=== PATIENT | female | born 1965 | race Caucasian/White ===

== ENCOUNTER 2022-04-15 23:50 | Emergency (ER) | payer OTHER ==
[2022-04-15] MEDS ORDERED: SODIUM CHLORIDE 0.9% 1,000 ML IV ONE (23:59)
[2022-04-16 00:04] VITALS: RESP 15; TEMP 98.1
--- NOTE | 2022-04-16 00:04 | ED ---
General Adult HPI - General Chief complaint: Fall Stated complaint: Fall Time Seen by Provider: 04/15/22 23:55 Source: patient, EMS, RN notes reviewed - History of Present Illness Initial comments: Patient is a 56-year-old female presents to the emergency room via EMS after falling off a barstool at a local bar and consequently hitting her head. She is unsure if she passed out/blacked out 3 or post event. Clean to EMS GCS initially was 13 and now is 15. She reports having a "couple" of drinks. She complains of pain to the posterior occipital region of her head where she has a laceration but denies any other joint pain. She denies any dizziness or nausea at this time. Tetanus is up-to-date. He denies any significant past medical or surgical history and does not take any medications on a regular basis. - Related Data Allergies Allergy/AdvReac Type Severity Reaction Status Date / Time Penicillins Allergy Rash/Hives Verified 04/16/22 00:00 Review of Systems ROS Statement: Those systems with pertinent positive or pertinent negative responses have been documented in the HPI. ROS Other: All systems not noted in ROS Statement are negative. Past Medical History Past Medical History: No Reported History History of Any Multi-Drug Resistant Organisms: None Reported Past Surgical History: No Surgical Hx Reported Past Anesthesia/Blood Transfusion Reactions: No Reported Reaction Past Psychological History: No Psychological Hx Reported Smoking Status: Never smoker Past Alcohol Use History: Occasional Past Drug Use History: None Reported General Exam General appearance: alert, in no apparent distress, appears intoxicated Head exam: Present: normocephalic, other Expanded Head exam: Present: laceration (occiptial ), hematoma Eye exam: Present: normal appearance, PERRL. Absent: scleral icterus, conjunctival injection ENT exam: Present: normal exam, mucous membranes moist Neck exam: Present: other (c-collar) Respiratory exam: Present: normal lung sounds bilaterally. Absent: respiratory distress, wheezes, rales, rhonchi, stridor Cardiovascular Exam: Present: regular rate, normal rhythm, normal heart sounds. Absent: systolic murmur, diastolic murmur, rubs, gallop, clicks Extremities exam: Present: normal inspection. Absent: pedal edema, joint swelling Back exam: Present: normal inspection Neurological exam: Present: alert, oriented X3, CN II-XII intact Psychiatric exam: Present: flat affect, other (Intoxicated) Skin exam: Present: other (Laceration occipital lobe) Course Vital Signs 04/16/22 00:01 Temperature 98.1 F Pulse Rate 81 Respiratory 15 Rate Blood Pressure 140/66 O2 Sat by Pulse 95 Oximetry Procedures - Laceration Laceration #1 Consent Obtained: verbal consent Indication: laceration Site: scalp (Occipital right side) Size (cm): 4 Description: linear Depth: simple, single layer Anesthesia Technique: local infiltration Pre-repair: wound explored, irrigated extensively Type of Sutures: other (matthew) Number of Sutures: 10 Patient Tolerated Procedure: well, no complications Medical Decision Making - Medical Decision Making 56-year-old female with alcohol intoxication and fall with head trauma. Will check CT of brain and cervical spine. Will keep on c-collar until C-spine is cleared. Will check CBC, CMP along with serum alcohol level. We'll give an additional 1 L IV fluid to help with acute intoxication. No other indication for other diagnostic imaging. CT of brain and cervical spine negative for acute intracranial process or cervical fracture. CBC stable. CMP shows mildly elevated liver enzymes and serum alcohol level elevated at 322. We'll close laceration to occipital scalp region with matthew. Wound care discussed with patient and boyfriend at bedside. No indication for antibiotic therapy. Tetanus up-to-date. Will discharge home with follow-up with her primary care provider. Both patient and boyfriend in acutely intoxicated and have a ride to take him home. Case discussed with Dr. Alcala - Lab Data Result diagrams: 04/16/22 00:15 04/16/22 00:15 Lab Results 04/16/22 04/16/22 04/16/22 Range/Units 00:15 00:15 00:15 WBC 7.6 (3.8-10.6) k/uL RBC 4.70 (3.80-5.40) m/uL Hgb 14.2 (11.4-16.0) gm/dL Hct 44.2 (34.0-46.0) % MCV 94.1 (80.0-100.0) fL MCH 30.1 (25.0-35.0) pg MCHC 32.0 (31.0-37.0) g/dL RDW 12.9 (11.5-15.5) % Plt Count 229 (150-450) k/uL MPV 8.1 Neutrophils % 48 % Lymphocytes % 41 % Monocytes % 4 % Eosinophils % 4 % Basophils % 1 % Neutrophils # 3.6 (1.3-7.7) k/uL Lymphocytes # 3.1 (1.0-4.8) k/uL Monocytes # 0.3 (0-1.0) k/uL Eosinophils # 0.3 (0-0.7) k/uL Basophils # 0.1 (0-0.2) k/uL PT 10.5 (9.0-12.0) sec INR 1.0 (<1.2) APTT 23.6 (22.0-30.0) sec Sodium 143 (137-145) mmol/L Potassium 3.5 (3.5-5.1) mmol/L Chloride 106 (98-107) mmol/L Carbon Dioxide 21 L (22-30) mmol/L Anion Gap 16 mmol/L BUN 16 (7-17) mg/dL Creatinine 0.68 (0.52-1.04) mg/dL Est GFR (CKD-EPI)AfAm >90 (>60 ml/min/1.73 sqM) Est GFR (CKD-EPI)NonAf >90 (>60 ml/min/1.73 sqM) Glucose 98 (74-99) mg/dL Calcium 8.6 (8.4-10.2) mg/dL Total Bilirubin 0.2 (0.2-1.3) mg/dL AST 51 H (14-36) U/L ALT 61 H (4-34) U/L Alkaline Phosphatase 117 (38-126) U/L Total Protein 6.9 (6.3-8.2) g/dL Albumin 4.2 (3.5-5.0) g/dL Serum Alcohol 322 H* mg/dL - Radiology Data Radiology results: report reviewed, image reviewed CT brain and cervical spine without contrast impression negative computed tomography scan of the brain. Spondylitic changes in the lower cervical spine. No fracture seen. Disposition Clinical Impression: Fall, Laceration of skin of scalp Disposition: HOME SELF-CARE Instructions (If sedation given, give patient instructions): Care For Your Stitches (ED), Laceration (ED), Concussion (ED) Additional Instructions: Please keep wound and dry. Monitor for signs and symptoms of infection and seek medical attention as appropriate if symptoms occur. Please follow-up with your primary care provider for staple removal in 7-10 days. Please return to the Emergency Department if symptoms worsen or any other concerns. Is patient prescribed a controlled substance at d/c from ED?: No Referrals: None,Stated [REFERRING] - 1-2 days Time of Disposition: 01:26
[2022-04-16 00:20] LABS: Basophils # (A) 0.1 k/uL (0-0.2); Basophils % (A) 1 %; Eosinophils # (A) 0.3 k/uL (0-0.7); Eosinophils % (A) 4 %; HCT 44.2 % (34.0-46.0); HGB 14.2 gm/dL (11.4-16.0); Lymphocytes # (A) 3.1 k/uL (1.0-4.8); Lymphocytes % (A) 41 %; MCH 30.1 pg (25.0-35.0); MCV 94.1 fL (80.0-100.0); Mean Platelet Volume 8.1; Monocytes # (A) 0.3 k/uL (0-1.0); Monocytes % (A) 4 %; Neutrophils # (A) 3.6 k/uL (1.3-7.7); Neutrophils % (A) 48 %; Platelet Count 229 k/uL (150-450); RDW 12.9 % (11.5-15.5); WBC 7.6 k/uL (3.8-10.6)
[2022-04-16 00:31] LABS: ALT 61 U/L (4-34); AST 51 U/L (14-36); African American GFR (CKD) >90 (>60 ml/min/1.73 sqM); Albumin 4.2 g/dL (3.5-5.0); Alkaline Phosphatase 117 U/L (38-126); Anion Gap 16 mmol/L; Blood Urea Nitrogen 16 mg/dL (7-17); Calcium 8.6 mg/dL (8.4-10.2); Carbon Dioxide 21 mmol/L (22-30); Chloride 106 mmol/L (98-107); Glucose 98 mg/dL (74-99); Non-African American GFR(CKD) >90 (>60 ml/min/1.73 sqM); Potassium 3.5 mmol/L (3.5-5.1); Sodium 143 mmol/L (137-145); Total Bilirubin 0.2 mg/dL (0.2-1.3); Total Protein 6.9 g/dL (6.3-8.2)
[2022-04-16 00:38] LABS: Partial Thromboplastin Time 23.6 sec (22.0-30.0); Prothrombin Time 10.5 sec (9.0-12.0)
[2022-04-16 00:41] LABS: Alcohol 322 mg/dL
--- NOTE | 2022-04-16 00:53 | CT ---
EXAMINATION TYPE: CT brain cspine wo con DATE OF EXAM: 04/16/2022 COMPARISON: None HISTORY: Fall CT DLP: 1594.2 mGycm Automated exposure control for dose reduction was used. Images obtained of the brain and cervical spine without contrast. Ventricles and sulci appear normal. There is no mass effect or midline shift. No sign of intracranial hemorrhage. Calvarium is intact. There is normal aeration of the mastoid sinuses. The cervical vertebrae show some straightening. There is mild spurring of the endplates anteriorly in the lower cervical spine. Facet joints are intact. The skull base is intact. IMPRESSION: Negative CT scan of the brain. Spondylotic changes in the lower cervical spine. No fracture seen.
[2022-04-16] MEDS ORDERED: LIDOCAINE 1% INJ 10MG/ML (20 ML MDV) SQ ONE (01:00)
[2022-04-16 01:41] VITALS: BP 129/67; PULSE 74
== END 2022-04-16 02:41 | disposition home or self-care (01) ==
LOC: EC 23:50
DX: S01.91XA Laceration without foreign body of unspecified part of head, initial encounter (principal); Z88.0 Allergy status to penicillin; W19.XXXA Unspecified fall, initial encounter
CPT/HCPCS: 36415; 80053; 85025; 85610; 85730; 80320; 72125; 70450; 12002; 99284; 96360; J2001

== ENCOUNTER → 2025-02-20 | Outpatient (CLI) | payer OTHER ==
[2025-02-20 11:41] LABS: Ferritin 363.0 ng/mL (10.0-291.0); Iron 102.0 UG/DL (50-170); Total Iron Binding Capacity 393.0 UG/DL (228-460); Vitamin B12 957.0 pg/mL (200.0-944.0)
== END | disposition home or self-care (01) ==
LOC: LABWHC1 07:58
PROVIDERS: ATTEND Family Medicine
DX: Z98.84 Bariatric surgery status (principal)
CPT/HCPCS: 36415; 82607; 82728; 82746; 83540; 83550